=== PATIENT | male | born 1935 | race Caucasian/White ===

== ENCOUNTER 2017-06-23 16:18 | Observation (INO) | payer OTHER ==
[2017-06-23 16:50] VITALS: BMI 22.9
[2017-06-23] MEDS ORDERED: LIDOCAINE 1%/EPI 1:100000 (20 ML MULTI DOSE VIAL) ONE (16:55)
--- NOTE | 2017-06-23 17:37 | PDOC ---
History of Present Illness - General History Source: Patient - History of Present Illness Initial Comments: 06/23/17 18:19 81 year old male BIBEMS following a mechanical fall. Patient was walking his dog when he stepped up onto the sidewalk dripped and fell forward hitting his head. Patient denies any pre-fall chest pain, shortness of breath, lightheadedness, visual changes. 06/23/17 18:32 <Sheba Mays - Last Filed: 06/23/17 18:42> <Ayaka Mata - Last Filed: 06/24/17 00:26> - General Chief Complaint: Injury Stated Complaint: FALL Time Seen by Provider: 06/23/17 16:53 Past History - Past Medical History COPD: No HTN: Yes - Suicide/Smoking/Psychosocial Hx Smoking History: Unknown if ever smoked <Sheba Mays - Last Filed: 06/23/17 18:42> *Physical Exam - Vital Signs Last Vital Signs Temp Pulse Resp BP Pulse Ox 84 18 153/67 97 06/23/17 16:48 06/23/17 16:48 06/23/17 16:48 06/23/17 16:48 <Sheba Mays - Last Filed: 06/23/17 18:42> - Vital Signs Last Vital Signs Temp Pulse Resp BP Pulse Ox 97.8 F 84 18 153/67 97 06/23/17 16:48 06/23/17 16:48 06/23/17 16:48 06/23/17 16:48 06/23/17 16:48 <Ayaka Mata - Last Filed: 06/24/17 00:26> ED Treatment Course - RADIOLOGY Radiology Studies Ordered: Category Date Time Status HUMERUS-LEFT [RAD] Stat Radiology 06/23/17 17:42 Taken SHOULDER-LEFT [RAD] Stat Radiology 06/23/17 17:42 Taken - Medications Given in the ED: ED Medications Discontinued Medications Generic Name Dose Route Start Last Admin Trade Name Freq PRN Reason Stop Dose Admin Cephalexin HCl 500 mg 06/23/17 20:25 06/23/17 20:56 Keflex - PO 06/23/17 20:26 500 mg ONCE ONE Administration Diphtheria/Tetanus/Acell Pertussis 0.5 ml 06/23/17 20:50 06/23/17 20:56 Boostrix - IM 06/23/17 20:51 0.5 ml .ONCE ONE Administration <Ayaka Mata - Last Filed: 06/24/17 00:26> *DC/Admit/Observation/Transfer <DavonSheba - Last Filed: 06/23/17 18:42> - Discharge Dispostion Admit: Yes <Ayaka Mata - Last Filed: 06/24/17 00:26> Diagnosis at time of Disposition: HIV (human immunodeficiency virus infection), Anticoagulated by anticoagulation treatment Open nasal fracture Qualifiers: Encounter type: initial encounter Qualified Code(s): S02.2XXB - Fracture of nasal bones, initial encounter for open fracture Head trauma Qualifiers: Encounter type: initial encounter Qualified Code(s): S09.90XA - Unspecified injury of head, initial encounter
[2017-06-23] MEDS ORDERED: CEPHALEXIN MONOHYDRATE 500 MG CAPSULE (UD) PO ONE (20:25)
--- NOTE | 2017-06-23 20:40 | PDOC ---
Attending Attestation - Resident Resident Name: Sheba Mays - ED Attending Attestation I have performed the following: I have examined & evaluated the patient, The case was reviewed & discussed with the resident, I agree w/resident's findings & plan, Exceptions are as noted - HPI HPI: 06/24/17 00:37 81-year-old male brought in by ambulance after he fell walking the dog. he fell on the sidewalk because of his dog He denies any loss of consciousness. He presents with a significant laceration to his nasal bridge that had a small arterial bleed - Physicial Exam PE: 06/24/17 00:[address] Mays's PE. there is a u shaped laceration to his nasal bridge andhe has dried blood in his nares head -he has an additional abrasion to the tip od his nose and his chin -he has c/o of left shoulder tenderness but no obvious deformity pt is alert and conversant 06/24/17 00:40 - Medical Decision Making 06/24/17 21:10 ct head no acute intracranial pathology pt is on pradaxa, pt was signed out to Dr Luque,labs pending 06/24/17 21:12
[2017-06-23] MEDS ORDERED: CEPHALEXIN MONOHYDRATE 500 MG CAPSULE (UD) ONE (20:48)
[2017-06-23] MEDS ORDERED: DIPHTH,PERTUSS(ACELL),TET 0.5 ML DISP.SYRIN IM ONE (20:50)
[2017-06-24 04:48] LABS: BASO % 0.6 % (0-2.0); EOS % 1.6 % (0-4.5); HEMATOCRIT 32.5 % (35.4-49); HEMOGLOBIN 10.9 GM/dL (11.7-16.9); LYMPH % 11.5 % (8-40); MCHC 33.6 g/dl (32.0-35.9); MEAN CELL VOLUME 86.3 fl (80-96); MONO % 9.6 % (3.8-10.2); NEUT % 76.7 % (42.8-82.8); PLATELET COUNT 144 K/MM3 (134-434); RBC 3.76 M/mm3 (4.00-5.60); RDW 16.4 % (11.9-15.9); WHITE BLOOD COUNT 6.7 K/mm3 (4.0-10.0)
--- NOTE | 2017-06-24 08:39 | HP ---
CHIEF COMPLAINT: mechanical fall PCP: don't know. HISTORY OF PRESENT ILLNESS: 81 y/o male on anticoagulent came to hospital with a complain of mechanical fall yesterday afternoon. Patient reports that he was walking his dog yesterday when he tripped and fell down and hit his face. Denies loc, chest pain, sob, palpitations, aura, nausea, vomiting, numbness or weakness in part of body. Denies faecal or stool incontinence. He reports that after fall he noticed blood coming out of his nose and and also noticed pain in his nose and left shoulder. CT head : preliminary report no acute pathology X ray shoulder : Prelim report no fracture, bursitis with some fluid present. X ray facial bones: nasal bone fracture and fluid in right maxillary sinus. ER course was notable for: (1)cbc (2)ct head, xray shoulder, facial bones (3) Recent Travel: no PAST MEDICAL HISTORY: HTN, HLD, afib, HIV, gerd PAST SURGICAL HISTORY: haemorrhoid Social History: Smoking: quit 35 years ago Alcohol:no Drugs: no Family History: not relevant Allergies No Known Allergies Allergy (Verified 06/23/17 19:21) HOME MEDICATIONS: Home Medications Medication Instructions Recorded Aspirin Coated [Ecotrin -] 81 mg PO DAILY 06/23/17 Carvedilol [Coreg -] 3.125 mg PO BID 06/23/17 Dabigatran Etexilate Mesylate 150 mg PO BID 06/23/17 [Pradaxa -] Elviteg/Cob/Emtri/Tenof Alafen 1 each PO DAILY 06/23/17 [Genvoya Tablet] Finasteride [Proscar -] 5 mg PO DAILY 06/23/17 Furosemide [Lasix -] 20 mg PO DAILY 06/23/17 Pantoprazole Sodium [Protonix -] 40 mg PO DAILY 06/23/17 Rosuvastatin [Crestor -] 20 mg PO DAILY 06/23/17 Tamsulosin HCl [Flomax] 0.4 mg PO BID 06/23/17 Valsartan [Diovan] 80 mg PO DAILY 06/23/17 REVIEW OF SYSTEMS CONSTITUTIONAL: Absent: fever, chills, diaphoresis, generalized weakness, malaise, HEENT: Absent: nasal congestion, throat pain, throat swelling, difficulty swallowing, mouth swelling, ear pain, CARDIOVASCULAR: Absent: chest pain, syncope, palpitations, irregular heart rate, li RESPIRATORY: Absent: cough, shortness of breath, dyspnea with exertion, orthopnea, wheezing, stridor, hemoptysis GASTROINTESTINAL: Absent: abdominal pain, abdominal distension, nausea, vomiting, diarrhea, constipation, melena, hematochezia GENITOURINARY: Absent: dysuria, frequency, urgency, hesitancy, hematuria, flank pain, genital pain MUSCULOSKELETAL: Absent: myalgia, arthralgia, joint swelling, back pain, neck pain SKIN: Absent: rash, itching, pallor HEMATOLOGIC/IMMUNOLOGIC: Absent: easy bleeding, easy bruising, ENDOCRINE: Absent: unexplained weight gain, unexplained weight loss, NEUROLOGIC: Absent: headache, focal weakness or paresthesias, dizziness, unsteady gait, seizure, mental status changes, bladder or bowel incontinence PSYCHIATRIC: Absent: anxiety, depression, PHYSICAL EXAMINATION Vital Signs - 24 hr 06/23/17 16:48 Temperature 97.8 F Pulse Rate 84 Respiratory 18 Rate Blood Pressure 153/67 O2 Sat by Pulse 97 Oximetry (%) GENERAL: Awake, alert, and fully oriented, in no acute distress. HEAD: Normal with no signs of trauma. EYES: extraocular movements intact, sclera anicteric, conjunctiva clear. No lid lag. EARS, NOSE, THROAT: Ears normal, sutures present on nasal bridge, abrasions with loss of epidermis on nose, mild oozing of blood from abrasions. NECK: Normal range of motion, LUNGS: Breath sounds equal, clear to auscultation bilaterally. No wheezes, and no crackles. No accessory muscle use. HEART:normal S1 and S2 without murmur, ABDOMEN: Soft, nontender, not distended, normoactive bowel sounds, no guarding, no rebound, no masses. MUSCULOSKELETAL: tenderness present in left shoulder, pain in doing abduction, adduction, flexion and extension of shoulder. UPPER EXTREMITIES: 2+ pulses, warm, well-perfused. No cyanosis. LOWER EXTREMITIES warm, well-perfused. No calf tenderness. No peripheral edema. NEUROLOGICAL: Cranial nerves II-XII intact. Normal speech. SKIN: Warm, dry, Laboratory Results - last 24 hr 06/24/17 04:37 WBC 6.7 D RBC 3.76 L Hgb 10.9 L D Hct 32.5 L D MCV 86.3 MCH 29.0 MCHC 33.6 RDW 16.4 H Plt Count 144 MPV 10.0 Neutrophils % 76.7 Lymphocytes % 11.5 Monocytes % 9.6 Eosinophils % 1.6 Basophils % 0.6 ASSESSMENT/PLAN: 81 y/o male on anticoagulent came to hospital with a complain of mechanical fall and fit his nose and chin. Nasal bone fracture with abrasions on skin. s/p mechanical fall sutures present on nasal bridge with mild oozing of blood from abrasions. got dpt vaccine in er bacitirin dressing bid. IV antibiotics for prophylaxis as patient has fluid in right maxilla with open nasal bone fracture. ENT consult. keep head end elevated. CT head done twice in er; no cute pathology. monitor haemoglobin as patient was on anticoagulant fall risk precautions. pain control Right shoulder pain likely bursitis, arthritis no fracture seen in x ray. ortho consult. pain control. HLD continue rosuvastatin 20 GERD: continue disla 40 HTN continue valsartan 80 daily coreg 3.12 bid lasix 20 daily monitor vitals afib continue coreg 3.125 bid hold pradaxa and aspirin for now. rate control. h/o chf lasix 20mg daily BPH continue with finasteride and flomax HIV continue home med. genvoya soft diet. dvt pro: patient ambulatory. dispo: obs Visit type - Emergency Visit Emergency Visit: Yes ED Registration Date: 06/24/17 Care time: The patient presented to the Emergency Department on the above date and was hospitalized for further evaluation of their emergent condition. - New Patient This patient is new to me today: Yes Date on this admission: 06/24/17 - Critical Care Critical Care patient: No Hospitalist Screening - Colonoscopy Questionnaire Colonoscopy Questionnaire: Colonoscopy Questionnaire - Patient: 50 - 75 years old and never had a screening colonoscopy: Unknown History of colon or rectal polyps, or CA: Unknown History of IBD, Crohn's disease or UC: Unknown History of abdominal radiation therapy as a child: Unknown - Relative: 1 with colon or rectal CA, or polyps at age 60 or younger: Unknown Colon or rectal CA diagnosed at age 45 or younger: Unknown Multiple relatives with colon or rectal CA: Unknown - Outcome: Screening Result: Negative Screen
[2017-06-24] MEDS ORDERED: ACETAMINOPHEN 1000 MG/100 ML VIAL (NON FORMULARY) IVPB PRN (09:40)
[2017-06-24] MEDS ORDERED: VALSARTAN 80 MG TABLET (UD) PO SCH (10:00)
[2017-06-24] MEDS ORDERED: AMPICILLIN NA/SULBACTAM NA 1.5 GM in SODIUM CHLORIDE 100 ML IVPB SCH (10:00)
[2017-06-24 10:01] LABS: HEMATOCRIT 33.9 % (35.4-49); HEMOGLOBIN 11.2 GM/dL (11.7-16.9); MCH 28.5 pg (25.7-33.7); MCHC 33.1 g/dl (32.0-35.9); MEAN CELL VOLUME 86.2 fl (80-96); MEAN PLT VOLUME 9.8 fl (7.5-11.1); PLATELET COUNT 143 K/MM3 (134-434); RBC 3.93 M/mm3 (4.00-5.60); RDW 16.7 % (11.9-15.9)
[2017-06-24 10:02] LABS: INR 1.35 (0.82-1.09); PROTHROMBIN TIME (PATIENT) 15.3 SEC (9.98-11.88)
[2017-06-24 10:05] LABS: ACTIVATED PTT 35.9 SECONDS (26.9-34.4)
[2017-06-24] MEDS: TAMSULOSIN HCL 0.4 MG CAP.ER.24H (FP) PO SCH ×2 (12:00→21:02)
[2017-06-24] MEDS: LIDOCAINE 5% TOPICAL PATCH TP SCH (12:00)
[2017-06-24] MEDS: FINASTERIDE 5 MG TABLET (FP) PO SCH (12:00)
[2017-06-24] MEDS: BACITRACIN 15 GM TUBE TOPICAL OINTMENT TP SCH ×2 (12:00→21:34)
[2017-06-24] MEDS: CARVEDILOL 3.125 MG TABLET (FP) PO SCH ×2 (12:00→21:02)
[2017-06-24] MEDS: FUROSEMIDE 20 MG TABLET (FP) PO SCH (12:00)
[2017-06-24] MEDS: PANTOPRAZOLE 40 MG TABLET (FP) PO SCH (12:00)
--- NOTE | 2017-06-24 12:17 | EKG ---
Test Reason : Blood Pressure : / mmHG Vent. Rate : 076 BPM Atrial Rate : 092 BPM P-R Int : 000 ms QRS Dur : 150 ms QT Int : 456 ms P-R-T Axes : 000 -63 093 degrees QTc Int : 513 ms ATRIAL FIBRILLATION WITH A COMPETING JUNCTIONAL PACEMAKER WITH PREMATURE VENTRICULAR OR ABERRANTLY CONDUCTED COMPLEXES LEFT AXIS DEVIATION LEFT BUNDLE BRANCH BLOCK ABNORMAL ECG WHEN COMPARED WITH ECG OF 03-DEC-2011 12:16, LEFT BUNDLE BRANCH BLOCK IS NOW PRESENT PREMATURE VENTRICULAR COMPLEXES NOW SEEN Confirmed by PILAR MCKEE MD ([id number]) on 06/24/2017 12:17:02 PM Referred By: Confirmed By:PILAR MCKEE MD
--- NOTE | 2017-06-24 13:43 | PN ---
Teaching Attending Note Name of Resident: Ameya Mason ATTENDING PHYSICIAN STATEMENT I saw and evaluated the patient. I reviewed the resident's note and discussed the case with the resident. I agree with the resident's findings and plan as documented with exceptions below. SUBJECTIVE: 81 yom with PMHx of Afib on Pradaxa, HIV on HAART, HTN, HLD, GERD, ?CAD, was walking his dog when tripped and fell. Brought in with bleeding nose, found with nasal bone fracture, also limitation in ROM left shoulder. Denies any chest pain, palpitations, dyspnea, dizziness, LOC, abdominal or urinary symptoms around the fall. OBJECTIVE: Vital Signs Period Temp Pulse Resp BP Sys/Jerome Pulse Ox Last 24 Hr 97.8 F-98.2 F 78-84 16-18 131-153/53-67 97-97 Intake & Output 06/21/17 06/22/17 06/23/17 06/24/17 23:59 23:59 23:59 23:59 Weight 160 lb 160 lb 0.008 oz GENERAL: Awake, alert, and fully oriented, in no acute distress. HEAD: Normal with no signs of trauma. EYES: Pupils equal, round and reactive to light, extraocular movements intact, sclera anicteric, conjunctiva clear. No lid lag. EARS, NOSE, THROAT: nasal brusing, with tenderness over nasal bone, 4-5 sutures over the bridge, with overlying abrasion, abrasion over the chin with no active bleed. NECK: soft, supple, no JVD LUNGS: Breath sounds equal, clear to auscultation bilaterally. No wheezes, and no crackles. No accessory muscle use. HEART: S1S2 irregular ABDOMEN: Soft, nontender, not distended, normoactive bowel sounds, no guarding, no rebound, no masses. MUSCULOSKELETAL: no spinal or CVA tenderness UPPER EXTREMITIES:Left shoulder- minimal elevation, unable to move arm at the shoulder, no point tenderness elicited over left shoulder area, positive radial pulses. LOWER EXTREMITIES: 2+ pulses, warm, well-perfused. No calf tenderness. No peripheral edema. NEUROLOGICAL: Cranial nerves II-XII intact. LUE exam limited given above. PSYCHIATRIC: Cooperative. Good eye contact. Appropriate mood and affect. SKIN: Warm, dry, normal turgor, no rashes or lesions noted, normal capillary refill. Home Medication List Medication Instructions Recorded Confirmed Type Aspirin Coated [Ecotrin -] 81 mg PO DAILY 06/23/17 06/23/17 History Carvedilol [Coreg -] 3.125 mg PO BID 06/23/17 06/23/17 History Dabigatran Etexilate Mesylate 150 mg PO BID 06/23/17 06/23/17 History [Pradaxa -] Elviteg/Cob/Emtri/Tenof Alafen 1 each PO DAILY 06/23/17 06/23/17 History [Genvoya Tablet] Finasteride [Proscar -] 5 mg PO DAILY 06/23/17 06/23/17 History Furosemide [Lasix -] 20 mg PO DAILY 06/23/17 06/23/17 History Pantoprazole Sodium [Protonix -] 40 mg PO DAILY 06/23/17 06/23/17 History Rosuvastatin [Crestor -] 20 mg PO DAILY 06/23/17 06/23/17 History Tamsulosin HCl [Flomax] 0.4 mg PO BID 06/23/17 06/23/17 History Valsartan [Diovan] 80 mg PO DAILY 06/23/17 06/23/17 History Active Medications Generic Name Dose Route Start Last Admin Trade Name Freq PRN Reason Stop Dose Admin Acetaminophen 1,000 mg 06/24/17 09:40 Ofirmev Injection - IVPB Q6H PRN PAIN Amoxicillin/Clavulanate Potassium 1 tab 06/24/17 17:30 Augmentin - 875mg Tablet PO BID@0800,1730 [facility] Bacitracin 1 applic 06/24/17 10:00 06/24/17 12:00 Bacitracin - TP 1 applic BID [facility] Administration Carvedilol 3.125 mg 06/24/17 10:00 06/24/17 12:00 Coreg - PO 3.125 mg BID [facility] Administration Finasteride 5 mg 06/24/17 10:00 06/24/17 12:00 Proscar - PO 5 mg DAILY [facility] Administration Furosemide 20 mg 06/24/17 10:00 06/24/17 12:00 Lasix - PO 20 mg DAILY [facility] Administration Lidocaine 1 patch 06/24/17 10:00 06/24/17 12:00 Lidoderm Patch - TP 1 patch DAILY [facility] Administration Miscellaneous 1 each 06/24/17 22:00 Lidoderm Patch Removal MC DAILY@2200 [facility] Non-Formulary Medication 1 each 06/24/17 10:00 Elviteg/Cob/Emtri/Tenof Alafen [Genvoya Tablet] PO DAILY [facility] Pantoprazole Sodium 40 mg 06/24/17 10:00 06/24/17 12:00 Protonix - PO 40 mg DAILY [facility] Administration Rosuvastatin Calcium 20 mg 06/24/17 22:00 Crestor - PO HS [facility] Tamsulosin HCl 0.4 mg 06/24/17 10:00 06/24/17 12:00 Flomax - PO 0.4 mg BID [facility] Administration Valsartan 80 mg 06/24/17 10:00 06/24/17 12:00 Diovan - PO 80 mg DAILY [facility] Administration Laboratory Results - last 24 hr 06/24/17 06/24/17 06/24/17 04:37 09:40 09:40 WBC 6.7 D 7.0 RBC 3.76 L 3.93 L Hgb 10.9 L D 11.2 L Hct 32.5 L D 33.9 L MCV 86.3 86.2 MCH 29.0 28.5 MCHC 33.6 33.1 RDW 16.4 H 16.7 H Plt Count 144 143 MPV 10.0 9.8 Neutrophils % 76.7 Lymphocytes % 11.5 Monocytes % 9.6 Eosinophils % 1.6 Basophils % 0.6 PT with INR 15.30 H INR 1.35 H PTT (Actin FS) 35.[address] head x 2 no acute process Left shoulder/humerus xray - impaction deformity left humeral head, ?chronic sequelae of prior dislocation CT face - nasal bone fx, air fluid level right maxillary sinus, ?post traumatic CT left shoulder results reviewed CXR - no acute process EKG afib, LBBB, LAD, PVC ASSESSMENT AND PLAN: 81 yom with Afib on pradaxa, HTN, HLD, HIV on HAART, BPH, ?CAD, unclear cardiac history admitted with mechanical fall, nasal bone fracture, Left shoulder pain with limitation of movements. -Mechanical fall -Nasal bone communited fracture -Facial laceration nasal bridge s/p sutures -Left shoulder pain/limitation of ROM, ?old rotator cuff tear exacerbated by current fall -Abnormal EKG, Afib with LBBB -HTN -HLD -HIv on HAART -?CAD, ?Cardiac history. Plan: CT Brain x 2 neg for acute process. Neuro checks Hold pradaxa. ENT consulted, head end of bed elevated, no nose blowing or picking for now. Prophylactic augmentin. Orthopedic consulted with Dr. Morley, case discussed, feels old rotator cuff tear likely exacerbated by current fall. Recommend pain control/sling/NWB LUE/ PT. Will need outpatient MRI if fails to improve, but unlikely surgical candidate for the same as discussed. EKG with AFib and LBBB, unclear if old. Will retrieve prior EKG and cardiac records. If new or concerns, get cardiology input.Telemetry overnight. Continue coreg/statin. Hold ASA today. Continue lasix/ARB, check BMP and address meds accordingly. Continue HAART. PT eval Admit to obs, anticipate d/c in 24 hours if no concerns, pending PT eval, safe disposition.
[2017-06-24 14:21] LABS: ANION GAP 7 (8-16); BLOOD UREA NITROGEN 25 mg/dL (7-18); CALCIUM 8.8 mg/dL (8.5-10.1); CHLORIDE 108 mmol/L (98-107); CO2 26 mmol/L (21-32); CREATININE 1.3 mg/dL (0.7-1.3); GLUCOSE,RANDOM 189 mg/dL (74-106); MAGNESIUM 2.2 mg/dL (1.8-2.4); PHOSPHOROUS 2.9 mg/dL (2.5-4.9); SODIUM 141 mmol/L (136-145)
[2017-06-24 15:35] LABS: HEMATOCRIT 31.8 % (35.4-49); HEMOGLOBIN 10.5 GM/dL (11.7-16.9); MCH 28.6 pg (25.7-33.7); MEAN CELL VOLUME 86.8 fl (80-96); MEAN PLT VOLUME 10.8 fl (7.5-11.1); PLATELET COUNT 137 K/MM3 (134-434); RBC 3.67 M/mm3 (4.00-5.60); RDW 16.1 % (11.9-15.9)
[2017-06-24] MEDS: INSULIN SLIDING SCALE (NOVOLOG) 1 VIAL SQ SCH (17:01)
[2017-06-24] MEDS: AMOX TR/POT CLAV 875MG/125MG TABLETS (FP) PO SCH (17:02)
[2017-06-24] MEDS ORDERED: ACETAMINOPHEN 325 MG TABLET (FP) PO PRN (17:06)
--- NOTE | 2017-06-24 18:17 | CON.ENT ---
Consult Consult Specialty:: ENT Referred by:: Dr. Mason (Res)/ Dr. Holley ([facility]) Reason for Consultation:: nasal fracture - History of Present Illness Chief Complaint: fall, nasal trauma History of Present Illness: 81 yo M admitted after a fall while walking his dog, fell to ground and struck head and face, +nasal trauma with fracture and dorsal laceration, admitted to telemetry. - History Source History Provided By: Patient, Medical Record Limitations to Obtaining History: No Limitations - Smoking History Smoking history: Unknown if ever smoked Home Medications - Allergies Allergies/Adverse Reactions: Allergies Allergy/AdvReac Type Severity Reaction Status Date / Time No Known Allergies Allergy Verified 06/23/17 19:21 - Home Medications Home Medications: Ambulatory Orders Aspirin Coated [Ecotrin -] 81 mg PO DAILY 06/23/17 Carvedilol [Coreg -] 3.125 mg PO BID 06/23/17 Dabigatran Etexilate Mesylate [Pradaxa -] 150 mg PO BID 06/23/17 Elviteg/Cob/Emtri/Tenof Alafen [Genvoya Tablet] 1 each PO DAILY 06/23/17 Finasteride [Proscar -] 5 mg PO DAILY 06/23/17 Furosemide [Lasix -] 20 mg PO DAILY 06/23/17 Pantoprazole Sodium [Protonix -] 40 mg PO DAILY 06/23/17 Rosuvastatin [Crestor -] 20 mg PO DAILY 06/23/17 Tamsulosin HCl [Flomax] 0.4 mg PO BID 06/23/17 Valsartan [Diovan] 80 mg PO DAILY 06/23/17 Elviteg/Cob/Emtri/Tenof Alafen [Genvoya Tablet] 1 each PO DAILY 06/24/17 Physical Exam-ENT Vital Signs: Vital Signs Temperature 98.2 F 06/24/17 12:12 Pulse Rate 78 06/24/17 12:12 Respiratory Rate 16 06/24/17 12:12 Blood Pressure 131/53 06/24/17 12:12 O2 Sat by Pulse Oximetry (%) 97 06/24/17 12:12 Constitutional: Yes: No Distress, Calm Head: Yes: WNL Eyes: Yes: WNL Nose: Yes: Other (dorsal laceration, sutured, inferiorly based flap dry dressing over lower dorsum for abrasions) Nasal Passage: Yes: Other (septum intact, deviated, dry blood both nasal cavities, no active bleeding some obstruction) Oral/Pharynx: Yes: Other (upper and lower dentures, no lesions, tongue WNL, oropharynx clear, voice clear and strong, no stridor or respiratory distress) Outer Ear: Yes: WNL Ear Canal: Yes: WNL Tympanic Membrane: Yes: WNL Neck: Yes: WNL Respiratory: Yes: WNL Imaging - Results Cat Scan: Report Reviewed, Image Reviewed (soft tissue swelling, nasal bone fracture, not significantly displaced, ++deviated septum, no obvious hematoma, air fluid level right maxillary sinus, no orbital fracture) Problem List - Problems (1) Open nasal fracture Assessment/Plan: 81 yo M s/p fall with nasal trauma, laceration adn minimally displaced fracture laceration has been sutured, also external nasal dorsal abrasions. deviated septum, may be exacerbated by this trauma dry blood, no active bleeding Recommend: continue wound care with antibiotic ointment nasal saline spray ordered needs follow-up in office for suture removal 3-5 days presently no surgery for nasal fracture recommended Thank you for consultation, Jose Alejandro Rider MD FACS Code(s): S02.2XXB - FRACTURE OF NASAL BONES, INITIAL ENCOUNTER FOR OPEN FRACTURE Qualifiers: Encounter type: initial encounter Qualified Code(s): S02.2XXB - Fracture of nasal bones, initial encounter for open fracture
[2017-06-24] MEDS: SODIUM CHLORIDE NASAL SPRAY 44 ML BOTTLE NS SCH (21:03)
[2017-06-24] MEDS ORDERED: ROSUVASTATIN CA 20 MG TABLET (FP) PO SCH (22:00)
[2017-06-24] MEDS ORDERED: LIDOCAINE PATCH REMOVAL MC SCH (22:00)
[2017-06-25] MEDS: INSULIN SLIDING SCALE (NOVOLOG) 1 VIAL SQ SCH ×2 (06:03→11:09)
[2017-06-25 07:23] LABS: CALCIUM 8.6 mg/dL (8.5-10.1); CHLORIDE 108 mmol/L (98-107); POTASSIUM 3.9 mmol/L (3.5-5.1); SODIUM 143 mmol/L (136-145)
[2017-06-25 07:26] LABS: ANION GAP 8 (8-16); BLOOD UREA NITROGEN 27 mg/dL (7-18); CO2 27 mmol/L (21-32); CREATININE 1.2 mg/dL (0.7-1.3); GLUCOSE,RANDOM 142 mg/dL (74-106)
--- NOTE | 2017-06-25 07:36 | PN ---
Physical Exam: SUBJECTIVE: Patient seen and examined - No major overnight events; Pt complaining of nasal pain, pain in L shoulder with abduction; denies any other pain; Denies f/c/n/v/d, LEIGH, dizziness, lightheadedness, CP, sob, cough, Ab pain, back pain, LE edema, peripheral numbness or weakness; Pt denies any prior hx of falls, lives alone, does not use ambulatory assist device; ENT saw pt yesterday, nothing to do as inpt; likely discharge today OBJECTIVE: Vital Signs Intake & Output 06/22/17 06/23/17 06/24/17 06/25/17 23:59 23:59 23:59 23:59 Intake Total 180 Output Total 520 360 Balance -340 -360 Weight 72.575 kg 72.575 kg Period Temp Pulse Resp BP Sys/Jerome Pulse Ox Last 24 Hr 98.2 F-99.5 F 63-82 16-20 119-131/53-64 97 GENERAL: Elderly man, lying in bed, NAD HEAD: Bandage on nasal bridge, trace abrasions noted on cheeks BL. No gross palpable deformities EYES: PERRL, extraocular movements intact, sclera anicteric, conjunctiva clear. No ptosis. ENT: Ears normal, nares patent, oropharynx clear without exudates, moist mucous membranes. NECK: Trachea midline, full range of motion, supple. LUNGS: CTABL, no wheezing, rhonchi, or rales HEART: Irr Irr, S1, S2 without murmur, rub or gallop. ABDOMEN: Soft, nontender, nondistended, normoactive bowel sounds, no guarding, no rebound, no hepatosplenomegaly, no masses. EXTREMITIES: 2+ pulses, warm, well-perfused, no edema. 5/5 strength, preserved sensation BL NEUROLOGICAL: Cranial nerves II through XII grossly intact. Normal speech, gait not observed. PSYCH: Normal mood, normal affect. Laboratory Results - last 24 hr CBC, BMP 06/24/17 14:53 06/25/17 06:30 06/24/17 14:53 06/24/17 06/24/17 06/24/17 09:40 09:40 13:45 WBC 7.0 RBC 3.93 L Hgb 11.2 L Hct 33.9 L MCV 86.2 MCH 28.5 MCHC 33.1 RDW 16.7 H Plt Count 143 MPV 9.8 PT with INR 15.30 H INR 1.35 H PTT (Actin FS) 35.9 H Sodium 141 Potassium 4.0 Chloride 108 H Carbon Dioxide 26 Anion Gap 7 L BUN 25 H Creatinine 1.3 D POC Glucometer Random Glucose 189 H D Hemoglobin A1c % Calcium 8.8 Phosphorus 2.9 Magnesium 2.2 Troponin I 0.02 06/24/17 06/24/17 06/24/17 13:45 14:30 14:53 WBC 6.0 RBC 3.67 L Hgb 10.5 L Hct 31.8 L MCV 86.8 MCH 28.6 MCHC 33.0 RDW 16.1 H Plt Count 137 MPV 10.8 D PT with INR INR PTT (Actin FS) Sodium Potassium Chloride Carbon Dioxide Anion Gap BUN Creatinine POC Glucometer Random Glucose Hemoglobin A1c % 8.9 H D Calcium Phosphorus Magnesium Troponin I Cancelled 06/24/17 06/25/17 17:00 05:43 WBC RBC Hgb Hct MCV MCH MCHC RDW Plt Count MPV PT with INR INR PTT (Actin FS) Sodium Potassium Chloride Carbon Dioxide Anion Gap BUN Creatinine POC Glucometer 164 134 Random Glucose Hemoglobin A1c % Calcium Phosphorus Magnesium Troponin I Active Medications Generic Name Dose Route Start Last Admin Trade Name Freq PRN Reason Stop Dose Admin Acetaminophen 650 mg 06/24/17 17:06 Tylenol - PO Q6H PRN PAIN Amoxicillin/Clavulanate Potassium 1 tab 06/24/17 17:30 06/24/17 17:02 Augmentin - 875mg Tablet PO 1 tab BID@0800,1730 IWONA Administration Bacitracin 1 applic 06/24/17 10:00 06/24/17 21:34 Bacitracin - TP 1 applic BID IWONA Administration Carvedilol 3.125 mg 06/24/17 10:00 06/24/17 21:02 Coreg - PO 3.125 mg BID IWONA Administration Finasteride 5 mg 06/24/17 10:00 06/24/17 12:00 Proscar - PO 5 mg DAILY IWONA Administration Furosemide 20 mg 06/24/17 10:00 06/24/17 12:00 Lasix - PO 20 mg DAILY IWONA Administration Insulin Aspart 1 vial 06/24/17 16:30 06/25/17 06:03 Novolog Vial Sliding Scale - SQ Not Given TIDAC IWONA Protocol Lidocaine 1 patch 06/24/17 10:00 06/24/17 12:00 Lidoderm Patch - TP 1 patch DAILY IWONA Administration Miscellaneous 1 each 06/24/17 22:00 06/24/17 21:35 Lidoderm Patch Removal MC 1 each DAILY@2200 IWONA Administration Non-Formulary Medication 1 each 06/24/17 10:00 Elviteg/Cob/Emtri/Tenof Alafen [Genvoya Tablet] PO DAILY IWONA Pantoprazole Sodium 40 mg 06/24/17 10:00 06/24/17 12:00 Protonix - PO 40 mg DAILY IWONA Administration Rosuvastatin Calcium 20 mg 06/24/17 22:00 06/24/17 21:02 Crestor - PO 20 mg HS IWONA Administration Sodium Chloride 2 spray 06/24/17 22:00 06/24/17 21:03 Coronita [place] Nasal [place] - NS 2 spray BID IWONA Administration Tamsulosin HCl 0.4 mg 06/24/17 10:00 06/24/17 21:02 Flomax - PO 0.4 mg BID IWONA Administration Valsartan 80 mg 06/25/17 10:00 Diovan - PO DAILY IWONA no micro CXR 06/23 - No acute pathology Head Ct 06/23 -Moderate atrophy without evidence of acute intracranial pathology. Both orbits appear unremarkable. Air-fluid level in the right maxillary antrum with increased attenuation, likely posttraumatic versus chronic with superimposed acute sinusitis. Slightly depressed nasal bone fracture, mainly on the right with overlying soft tissue swelling A preliminary report was forwarded by the [employer] service, IMAGING MIX CHEMIST Facial CT 06/23 - Comminuted slightly depressed fracture at the tip and right side of the nasal bone with moderate overlying soft tissue swelling. Both orbits are intact. Partial opacification of the ethmoid air cells but hyperdense air-fluid level in the right maxillary antrum that may be posttraumatic. Cannot rule out chronic and superimposed acute sinusitis A preliminary report was forwarded by the [employer] service, IMAGING MIX CHEMIST Left shoulder/humeral XR 06/23 - Impaction deformity of the left humeral head is age indeterminant, but may be chronic sequela of prior dislocation. Please correlate clinically. Otherwise, no evidence of acute fracture in the remainder of the left humerus. Upper Extremity CT 06/24 - There is no CT evidence of fracture or dislocation. Probable nonspecific glenohumeral joint effusion. Probable nonspecific subacromial-subdeltoid bursal fluid accumulation. Mild glenohumeral degenerative joint space narrowing. Mild degenerative bony spurring along the greater tuberosity of the humeral head. Mild degenerative bony hypertrophic change of the acromioclavicular joint. The periarticular musculature demonstrates no gross pathology. MRI evaluation is suggested, nonemergent versus emergent as clinically indicated. Head CT 06/24 - Moderate volume loss and probable mild periventricular chronic microvascular ischemic disease changes without gross evidence of acute intracranial pathology CXR 06/24 - Bilateral subsegmental atelectasis. No other pathology noted. ASSESSMENT/PLAN: 81 y/o male on anticoagulent came to hospital with a complain of mechanical fall and fit his nose and chin. Nasal bone fracture with abrasions on skin. s/p mechanical fall sutures present on nasal bridge with mild oozing of blood from abrasions. got dpt vaccine in er bacitirin dressing bid. IV antibiotics for prophylaxis as patient has fluid in right maxilla with open nasal bone fracture. ENT consult. keep head end elevated. CT head done twice in er; no cute pathology. monitor haemoglobin as patient was on anticoagulant fall risk precautions. pain control Right shoulder pain likely bursitis, arthritis no fracture seen in x ray. ortho consult. pain control. HLD continue rosuvastatin 20 GERD: continue disla 40 HTN continue valsartan 80 daily coreg 3.12 bid lasix 20 daily monitor vitals afib continue coreg 3.125 bid hold pradaxa and aspirin for now. rate control. h/o chf lasix 20mg daily BPH continue with finasteride and flomax HIV continue home med. genvoya soft diet. dvt pro: patient ambulatory. dispo: obs
[2017-06-25] MEDS: FINASTERIDE 5 MG TABLET (FP) PO SCH (09:05)
[2017-06-25] MEDS: PANTOPRAZOLE 40 MG TABLET (FP) PO SCH (09:05)
[2017-06-25] MEDS: AMOX TR/POT CLAV 875MG/125MG TABLETS (FP) PO SCH (09:05)
[2017-06-25] MEDS: BACITRACIN 15 GM TUBE TOPICAL OINTMENT TP SCH (09:05)
[2017-06-25] MEDS: FUROSEMIDE 20 MG TABLET (FP) PO SCH (09:05)
[2017-06-25] MEDS: CARVEDILOL 3.125 MG TABLET (FP) PO SCH (09:06)
[2017-06-25] MEDS: LIDOCAINE 5% TOPICAL PATCH TP SCH (09:06)
[2017-06-25] MEDS: TAMSULOSIN HCL 0.4 MG CAP.ER.24H (FP) PO SCH (09:06)
[2017-06-25] MEDS: SODIUM CHLORIDE NASAL SPRAY 44 ML BOTTLE NS SCH (09:11)
--- NOTE | 2017-06-25 09:27 | CON.ORTH ---
Consult Consult Specialty:: orthopedics Reason for Consultation:: LEFT shoulder pain - History of Present Illness History of Present Illness: 81-year-old male fell and landed on his LEFT arm. He complains of LEFT shoulder pain. He was admitted to the hospital for other reasons. He states it feels a little bit sore at rest and hurts when he moves it. He has had x- rays and a CAT scan. No other complaints. No numbness or tingling. - History Source History Provided By: Patient Limitations to Obtaining History: No Limitations - Smoking History Smoking history: Unknown if ever smoked Home Medications - Allergies Allergies/Adverse Reactions: Allergies Allergy/AdvReac Type Severity Reaction Status Date / Time No Known Allergies Allergy Verified 06/23/17 19:21 - Home Medications Home Medications: Ambulatory Orders Aspirin Coated [Ecotrin -] 81 mg PO DAILY 06/23/17 Carvedilol [Coreg -] 3.125 mg PO BID 06/23/17 Dabigatran Etexilate Mesylate [Pradaxa -] 150 mg PO BID 06/23/17 Elviteg/Cob/Emtri/Tenof Alafen [Genvoya Tablet] 1 each PO DAILY 06/23/17 Finasteride [Proscar -] 5 mg PO DAILY 06/23/17 Furosemide [Lasix -] 20 mg PO DAILY 06/23/17 Pantoprazole Sodium [Protonix -] 40 mg PO DAILY 06/23/17 Rosuvastatin [Crestor -] 20 mg PO DAILY 06/23/17 Tamsulosin HCl [Flomax] 0.4 mg PO BID 06/23/17 Valsartan [Diovan] 80 mg PO DAILY 06/23/17 Elviteg/Cob/Emtri/Tenof Alafen [Genvoya Tablet] 1 each PO DAILY 06/24/17 Physical Exam for Ortho Vital Signs: Vital Signs Temperature 98.9 F 06/25/17 05:31 Pulse Rate 69 06/25/17 05:31 Respiratory Rate 20 06/25/17 05:31 Blood Pressure 124/64 06/25/17 05:31 O2 Sat by Pulse Oximetry (%) 97 06/24/17 12:12 Constitutional: Yes: Well Nourished, No Distress Neck: Yes: WNL Cardiovascular: Yes: WNL Respiratory: Yes: WNL Labs: CBC, BMP 06/24/17 14:53 06/25/17 06:30 INR, PTT INR 1.35 (0.82-1.09) H 06/24/17 09:40 Other Findings/Remarks: patient has a bandage on his nose but otherwise is well-appearing. His LEFT shoulder is examined. There is mild edema. Possible mild joint effusion. Mild tenderness over proximal humerus. No other tenderness. Neurovascularly intact distally. Full passive range of motion with some pain and impingement findings. He is able to actively internally and externally rotate with good strength. He can abduct the arm to about 90 but is weak and it hurts him. Imaging - Results X-ray: Image Reviewed (I have reviewed his LEFT shoulder imaging which shows no acute fracture or dislocation. There is early arthritis. There is some degenerative changes greater tuberosity.) Assessment/Plan impression: LEFT shoulder injury rule out rotator cuff tear Plan: I discussed findings and treatment options with patient. He should follow up in office after discharge and we will likely get an MRI if his symptoms continue. There is no acute indication for any immediate intervention. Upon discharge he should call my office to make an appointment at [phone].
[2017-06-25] MEDS ORDERED: VALSARTAN 80 MG TABLET (UD) PO SCH (10:00)
--- NOTE | 2017-06-25 13:39 | PN ---
Teaching Attending Note Name of Resident: Humble Lynch ATTENDING PHYSICIAN STATEMENT I saw and evaluated the patient. I reviewed the resident's note and discussed the case with the resident. I agree with the resident's findings and plan as documented. SUBJECTIVE: OBJECTIVE: Last Vital Signs Temp Pulse Resp BP Pulse Ox 98 F 80 18 140/60 98 06/25/17 10:00 06/25/17 10:00 06/25/17 10:00 06/25/17 10:00 06/25/17 08:00 General NAD HEENT nose with splint in place, dried blood at nares CV S1 S2 RRR no murmur/rub/gallop Lungs CTA B/L no wheezing/rales/rhonchi ABdomen soft NT/ND Extremities LUE in sling, refusing movement of arm ASSESSMENT AND PLAN: 81 yo M with Afib on pradaxa, HTN, HLD, HIV on HAART, BPH, ?CAD, unclear cardiac history admitted with mechanical fall, nasal bone fracture, Left shoulder pain with limitation of movements. 1. Mechanical fall- due to accidental trip and fall. PT evaluation. will require cane on ambulation 2. Nasal bone communited fracture- minimal deviation likely exacerbated by fall. on empiric augmentin day 2 of 14days. 3. Facial laceration nasal bridge s/p sutures- local wound care. f/u for suture removal in 3 days 4. Left shoulder pain/limitation of ROM, ?old rotator cuff tear exacerbated by current fall- cont pain control. will f/u with ortho. may require MRI if pain persists 5. DM- newly diagnosed. A1c 8.9. has been told to monitor sugars but was not started on medications. states when he does check gets in 80's. does admit to eating high carb meals. counseled on risks assoc with non compliant DM. will start on metformin. nutrition eval. will need f/u with PMD 6. Abnormal EKG, Afib with LBBB 7. HTN 8. HLD 9. HIv on HAART 10. d/c home with pmd f/u this week.
[2017-06-25 15:23] VITALS: BP 106/58; PULSE 65; TEMP 99
--- NOTE | 2017-06-25 16:12 | DS ---
Physical Exam: SUBJECTIVE: Patient seen and examined - No major overnight events; Pt complaining of nasal pain, pain in L shoulder with abduction; denies any other pain; Denies f/c/n/v/d, LEIGH, dizziness, lightheadedness, CP, sob, cough, Ab pain, back pain, LE edema, peripheral numbness or weakness; Pt denies any prior hx of falls, lives alone, does not use ambulatory assist device; ENT saw pt yesterday, nothing to do as inpt; likely discharge today OBJECTIVE: Vital Signs Intake & Output 06/22/17 06/23/17 06/24/17 06/25/17 23:59 23:59 23:59 23:59 Intake Total 180 250 Output Total 520 660 Balance -340 -410 Weight 72.575 kg 72.575 kg Period Temp Pulse Resp BP Sys/Jerome Pulse Ox Last 24 Hr 98 F-99.5 F 63-82 18-20 106-140/57-64 98 PHYSICAL EXAM GENERAL: Elderly man, lying in bed, NAD HEAD: Bandage on nasal bridge, trace abrasions noted on cheeks BL. No gross palpable deformities EYES: PERRL, extraocular movements intact, sclera anicteric, conjunctiva clear. No ptosis. ENT: Ears normal, nares patent, oropharynx clear without exudates, moist mucous membranes. NECK: Trachea midline, full range of motion, supple. LUNGS: CTABL, no wheezing, rhonchi, or rales HEART: Irr Irr, S1, S2 without murmur, rub or gallop. ABDOMEN: Soft, nontender, nondistended, normoactive bowel sounds, no guarding, no rebound, no hepatosplenomegaly, no masses. EXTREMITIES: 2+ pulses, warm, well-perfused, no edema. 5/5 strength, preserved sensation BL NEUROLOGICAL: Cranial nerves II through XII grossly intact. Normal speech, gait not observed. PSYCH: Normal mood, normal affect. LABS Laboratory Results - last 24 hr CBC, BMP 06/24/17 14:53 06/25/17 06:30 06/24/17 06/24/17 06/25/17 14:30 17:00 05:43 Sodium Potassium Chloride Carbon Dioxide Anion Gap BUN Creatinine POC Glucometer 164 134 Random Glucose Hemoglobin A1c % 8.9 H D Calcium 06/25/17 06/25/17 06:30 11:08 Sodium 143 Potassium 3.9 Chloride 108 H Carbon Dioxide 27 Anion Gap 8 BUN 27 H Creatinine 1.2 POC Glucometer 151 Random Glucose 142 H D Hemoglobin A1c % Calcium 8.6 No micro CXR 06/23 - No acute pathology Head Ct 06/23 -Moderate atrophy without evidence of acute intracranial pathology. Both orbits appear unremarkable. Air-fluid level in the right maxillary antrum with increased attenuation, likely posttraumatic versus chronic with superimposed acute sinusitis. Slightly depressed nasal bone fracture, mainly on the right with overlying soft tissue swelling A preliminary report was forwarded by the [email or web address] service, IMAGING ETCHER MACHINE Facial CT 06/23 - Comminuted slightly depressed fracture at the tip and right side of the nasal bone with moderate overlying soft tissue swelling. Both orbits are intact. Partial opacification of the ethmoid air cells but hyperdense air-fluid level in the right maxillary antrum that may be posttraumatic. Cannot rule out chronic and superimposed acute sinusitis A preliminary report was forwarded by the [email or web address] service, IMAGING ETCHER MACHINE Left shoulder/humeral XR 06/23 - Impaction deformity of the left humeral head is age indeterminant, but may be chronic sequela of prior dislocation. Please correlate clinically. Otherwise, no evidence of acute fracture in the remainder of the left humerus. Upper Extremity CT 06/24 - There is no CT evidence of fracture or dislocation. Probable nonspecific glenohumeral joint effusion. Probable nonspecific subacromial-subdeltoid bursal fluid accumulation. Mild glenohumeral degenerative joint space narrowing. Mild degenerative bony spurring along the greater tuberosity of the humeral head. Mild degenerative bony hypertrophic change of the acromioclavicular joint. The periarticular musculature demonstrates no gross pathology. MRI evaluation is suggested, nonemergent versus emergent as clinically indicated. Head CT 06/24 - Moderate volume loss and probable mild periventricular chronic microvascular ischemic disease changes without gross evidence of acute intracranial pathology CXR 06/24 - Bilateral subsegmental atelectasis. No other pathology noted. Consults: Ortho - Seen by Dr. Morley ENT - Seen by Dr. Rider HOSPITAL COURSE: Prehospital course: 81 y/o male on anticoagulent came to hospital with a complain of mechanical fall yesterday afternoon. Patient reports that he was walking his dog yesterday when he tripped and fell down and hit his face. Denies loc, chest pain, sob, palpitations, aura, nausea, vomiting, numbness or weakness in part of body. Denies faecal or stool incontinence. He reports that after fall he noticed blood coming out of his nose and and also noticed pain in his nose and left shoulder. CT head : preliminary report no acute pathology X ray shoulder : Prelim report no fracture, bursitis with some fluid present. X ray facial bones: nasal bone fracture and fluid in right maxillary sinus. ER course was notable for: (1)cbc (2)ct head, xray shoulder, facial bones (3) Hospital course: Pt VSS on presentation. Initial labs unremarkable. CXR w/ subsegmental atelectasis. Nasal fracture on head/facial CT as noted above in imaging. L arm/ shoulder CT as noted above. ENT and ortho consulted. Pt placed on augmentin for ppx given fluid in R maxillary sinus. EKG on presentation notable for afib with LBBB, however present on prior ekg as noted in attending admission note. Pradaxa held. All other home meds continued, including HAART tx. Ortho evaluated case, recommended non-surgical intervention with sling/NWB/PT for likely exacerbation of rotator cuff tear. Per ENT, no surgery recommended at this time; nasal spray, abx ointment and suture removal in 3-5 days. Pt still with pain on abduction in shoulder on discharge, advised he may require f/u MRI and outpt f/u with orthopedic surgeon to further evaluate if any intervention is necessary. Pt A1C on admission 8.9, started on PO metformin 500mg BID. Pt discharged with outpt f/u with ENT and ortho for management. Date of Admission:06/24/17 Date of Discharge: 06/25/17 Pt is medically stable and cleared for discharge with outpt f/u with ENT and Ortho. Minutes to complete discharge: 35 Discharge Summary Reason For Visit: ON ANTICOAGULANT THERAPY,TRAUMATIC INJURY OF HEAD Current Active Problems Anticoagulated by anticoagulation treatment (Acute) HIV (human immunodeficiency virus infection) (Acute) Head trauma (Acute) Open nasal fracture (Acute) Condition: Stable - Instructions Diet, Activity, Other Instructions: You were in the hospital after a fall, which caused you to break your nose. Your skin tears were repaired with sutures and you were seen by an Ear Nose and Throat doctor, Dr Rider. You do not need surgery for nose fracture. Please use saline nasal spray and follow up with Dr Rider to take out sutures and evaluate the fracture in 1 week. To avoid an infection in your nose you need to take 2 weeks of antibiotics Augmentin twice a day. You likely swallowed some blood from the nose bleed so it is normal to have very dark colored bowel movements for a few days. If you nose starts bleeding a lot, immediately come to ER. On you lab work we found that your sugar number Hgb A1c = 8.9, which is high and means you have diabetes. This is a dangerous condition that can cause a lot of health problems but which can be controlled with diet and medication. You need to check your sugars three times a day (morning and before meals) and start taking Metformin 500 mg twice a day (prescribed to your pharmacy). You need to eat a diet with low carbohydrates (sugars, bread, pasta, etc). Document what your sugars are and bring them to your doctors office. He may need to further adjust your medications. You hurt your shoulder during the fall. You were seen by Orthopedic surgeon Dr Morley. He thinks that pain is due to your chronic shoulder injury and does not need intervention at this time. If the pain continues for over 2 weeks, please see Dr Morley at his office for evaluation and shoulder MRI Please return to ER if severe nose bleed occurs Call Dr Rock or go to ER if your sugars are above 400 on glucometer read . Referrals: Ariela Freeman RES [Resident] - 2 Weeks [place] Morley MD [Staff Physician] - 2 Weeks Jose Alejandro Rider MD [Staff Physician] - 1 Week Disposition: HOME - Home Medications Comprehensive Discharge Medication List: Ambulatory Orders Aspirin Coated [Ecotrin -] 81 mg PO DAILY 06/23/17 Carvedilol [Coreg -] 3.125 mg PO BID 06/23/17 Dabigatran Etexilate Mesylate [Pradaxa -] 150 mg PO BID 06/23/17 Finasteride [Proscar -] 5 mg PO DAILY 06/23/17 Furosemide [Lasix -] 20 mg PO DAILY 06/23/17 Pantoprazole Sodium [Protonix -] 40 mg PO DAILY 06/23/17 Rosuvastatin [Crestor -] 20 mg PO DAILY 06/23/17 Tamsulosin HCl [Flomax -] 0.4 mg PO BID 06/23/17 Valsartan [Diovan] 80 mg PO DAILY 06/23/17 Elviteg/Cob/Emtri/Tenof Alafen [Genvoya Tablet] 1 each PO DAILY 06/24/17 Amox-Tr/K Cl [Augmentin 875-125mg Tablet -] 1 tab PO BID@0800,1730 #28 tablet Lidocaine 5% Patch [Lidoderm -] 1 patch TP DAILY #14 patch 06/25/17 Metformin HCl [Glucophage] 500 mg PO BID #60 tablet 06/25/17 Sodium Chloride Nasal [place] [[place] Nasal [place] -] 2 spray NS BID #3 spray 06/25/17 This patient is new to me today: Yes Date on this admission: 06/25/17 Emergency Visit: Yes ED Registration Date: 06/24/17 Care time: The patient presented to the Emergency Department on the above date and was hospitalized for further evaluation of their emergent condition. Critical Care patient: No - Discharge Referral Referred to [facility] Med P.C[facility] No
== END 2017-06-25 17:07 | disposition home or self-care (01) ==
LOC: JER 16:18 → JERBED 06-24 00:26 → J4W 06-24 15:55
PROVIDERS: ADMIT Internal Medicine; ATTEND Internal Medicine
PROC: 0HQ1XZZ Repair Face Skin, External Approach (ICD-10-PCS; principal; 2017-06-24)
PROC: 3E03329 Introduction of Other Anti-infective into Peripheral Vein, Percutaneous Approach (ICD-10-PCS; 2017-06-24)
PROC: 3E0234Z Introduction of Serum, Toxoid and Vaccine into Muscle, Percutaneous Approach (ICD-10-PCS; 2017-06-24)
DX: S02.2XXB Fracture of nasal bones, initial encounter for open fracture (principal); S09.90XA Unspecified injury of head, initial encounter; S00.31XA Abrasion of nose, initial encounter; S49.91XA Unspecified injury of right shoulder and upper arm, initial encounter; M25.511 Pain in right shoulder; Z21 Asymptomatic human immunodeficiency virus [HIV] infection status; I10 Essential (primary) hypertension; I48.91 Unspecified atrial fibrillation; I50.9 Heart failure, unspecified; I44.7 Left bundle-branch block, unspecified; E78.5 Hyperlipidemia, unspecified; J34.2 Deviated nasal septum; K21.9 Gastro-esophageal reflux disease without esophagitis; Z79.01 Long term (current) use of anticoagulants; Z87.891 Personal history of nicotine dependence; Z79.82 Long term (current) use of aspirin; N40.0 Benign prostatic hyperplasia without lower urinary tract symptoms; W01.0XXA Fall on same level from slipping, tripping and stumbling without subsequent striking against object, initial encounter; Y93.K1 Activity, walking an animal; Y92.480 Sidewalk as the place of occurrence of the external cause
CPT/HCPCS: 12011; 36415; 70450-TC; 70486-TC; 71045-TC-FY; 73030-TC-LT-FY; 73060-TC-LT-FY; 73200-TC-RT; 80048; 82962; 83036; 83735; 84100; 84484; 85025; 85027; 85610; 85730; 90471; 90715; 93005; 93010; 93306-TC; 97116-GP; 97161-GP; 99285-25; G0378

== ENCOUNTER 2017-07-01 10:18 | Emergency (ER) | payer OTHER ==
[2017-07-01 10:23] VITALS: BP 135/65; PULSE 62; TEMP 97.7; BMI 22.8
[2017-07-01] MEDS ORDERED: BACITRACIN 15 GM TUBE TOPICAL OINTMENT ONE (10:50)
--- NOTE | 2017-07-01 10:54 | PDOC ---
Suture Removal/Wound Check HPI - History of Present Illness Chief Complaint: Suture/Staple Removal(Here) Stated Complaint: FALL INJURY/ SUTURE REMOVAL Time Seen by Provider: 07/01/17 10:28 History Source: Yes: Patient Exam Limitations: Yes: No Limitations Treated at: [facility] ED - Previous ED Treatment Type of procedure performed on last visit: Yes: Laceration Repair Tetanus Immunization: Yes: Up to Date Past History - Travel Traveled outside of the country in the last 30 days: No Close contact w/someone who was outside of country & ill: No - Past Medical History Allergies/Adverse Reactions: Allergies Allergy/AdvReac Type Severity Reaction Status Date / Time No Known Allergies Allergy Verified 07/01/17 10:19 Home Medications: Ambulatory Orders Aspirin Coated [Ecotrin -] 81 mg PO DAILY 06/23/17 Carvedilol [Coreg -] 3.125 mg PO BID 06/23/17 Dabigatran Etexilate Mesylate [Pradaxa -] 150 mg PO BID 06/23/17 Finasteride [Proscar -] 5 mg PO DAILY 06/23/17 Furosemide [Lasix -] 20 mg PO DAILY 06/23/17 Pantoprazole Sodium [Protonix -] 40 mg PO DAILY 06/23/17 Rosuvastatin [Crestor -] 20 mg PO DAILY 06/23/17 Tamsulosin HCl [Flomax -] 0.4 mg PO BID 06/23/17 Valsartan [Diovan] 80 mg PO DAILY 06/23/17 Elviteg/Cob/Emtri/Tenof Alafen [Genvoya Tablet] 1 each PO DAILY 06/24/17 Amox-Tr/K Cl [Augmentin 875-125mg Tablet -] 1 tab PO BID@0800,1730 #28 tablet Lidocaine 5% Patch [Lidoderm -] 1 patch TP DAILY #14 patch 06/25/17 Metformin HCl [Glucophage] 500 mg PO BID #60 tablet 06/25/17 Sodium Chloride Nasal [place] [[place] Nasal [place] -] 2 spray NS BID #3 spray 06/25/17 Cardiac Disorders: Yes (AF) COPD: No Diabetes: Yes Disorders: Yes (BPH) HTN: Yes - Suicide/Smoking/Psychosocial Hx Smoking History: Unknown if ever smoked Have you smoked in the past 12 months: No Information on smoking cessation initiated: No Hx Alcohol Use: No Drug/Substance Use Hx: No Substance Use Type: None Suture Removal/Wound Check PE - Physical Exam Laceration/Wound Check Symptoms: reports: Improved, Other Comment (scabbing over suture line) Current Severity Level: None Maximum Severity Level: None Location of Laceration/Wound: bilateral: Nose (U shaped laceration, 7 simple interrupted sutures present) *Review of Systems - Review of Systems Able to Perform ROS?: Yes Constitutional: No: Chills, Fever, Weakness Integumentary: Yes: Other (scabbing over suture line) All Other Systems: Reviewed and Negative Medical Decision Making - Medical Decision Making 07/01/17 10:47 Pt is an 81 y/o M who presents to the ED for suture removal over his nasal bridge. 7 simple interrupted sutures present and wound is well healed and approximated. Wound cleaned with peroxide prior to removal, excess scab removed. Sutures removed and bacitracin placed over site. Return precautions given. Pt. understands all d/c instructions and all questions were answered. *DC/Admit/Observation/Transfer Diagnosis at time of Disposition: Visit for suture removal - Discharge Dispostion Disposition: HOME Condition at time of disposition: Stable Admit: No - Referrals Referrals: Miguel Magaña MD [Staff Physician] - - Patient Instructions Printed Discharge Instructions: DI for Suture Removal Additional Instructions: You had your sutures/hadley removed today. Please use bacitracin on the site daily for the next week. Avoid soaking the area with water for 1 more week as to what the wound fully heal. Follow-up with her primary care doctor as needed Return to the emergency department if you develop fevers, drainage from the site , increased pain, or have any changes in your symptoms. - Post Discharge Activity
== END 2017-07-01 11:17 | disposition home or self-care (01) ==
LOC: JERFT 10:18
DX: Z48.02 Encounter for removal of sutures (principal); I48.91 Unspecified atrial fibrillation; Z79.01 Long term (current) use of anticoagulants; I10 Essential (primary) hypertension; E11.9 Type 2 diabetes mellitus without complications; Z79.84 Long term (current) use of oral hypoglycemic drugs; N40.0 Benign prostatic hyperplasia without lower urinary tract symptoms; Z79.82 Long term (current) use of aspirin
CPT/HCPCS: 99281-25